=== PATIENT | female | born 1990 | race American Indian/Alaskan Native ===

== ENCOUNTER 2019-11-10 12:50 | Emergency (ER) | payer SELFPAY ==
[2019-11-10 13:16] VITALS: BP 135/76
== END 2019-11-10 15:41 | disposition left against medical advice (07) ==
LOC: ED 12:50
DX: N63.0 Unspecified lump in unspecified breast (principal); Z53.21 Procedure and treatment not carried out due to patient leaving prior to being seen by health care provider